=== PATIENT | female | born 1980 | race Caucasian/White ===

== ENCOUNTER 2016-11-27 09:05 | Emergency (ER) | payer OTHER | END 2016-11-27 09:53 | disposition home or self-care (01) | LOC: ER 09:05 | DX: S60.221A Contusion of right hand, initial encounter (principal); G43.909 Migraine, unspecified, not intractable, without status migrainosus; Z79.899 Other long term (current) drug therapy; Z98.51 Tubal ligation status; W22.8XXA Striking against or struck by other objects, initial encounter; Y92.69 Other specified industrial and construction area as the place of occurrence of the external cause; Y99.0 Civilian activity done for income or pay ==

== ENCOUNTER 2017-01-22 18:40 | Emergency (ER) | payer BC | END 2017-01-22 21:32 | disposition home or self-care (01) | LOC: ER 18:40 | DX: G43.909 Migraine, unspecified, not intractable, without status migrainosus (principal); Z79.899 Other long term (current) drug therapy | CPT/HCPCS: 96361; 96374; 96375; J1100; J1200; J1885; J2765 ==